=== PATIENT | male | born 2000 | race Caucasian/White ===

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

== ENCOUNTER 2023-04-25 22:48 | Emergency (ER) | payer BC ==
[2023-04-25] MEDS ORDERED: KETOROLAC 15 MG/ML 1 ML VIAL IM STA (22:58)
[2023-04-25] MEDS ORDERED: LIDOCAINE 4% PATCH TOPICAL ONE (22:58)
--- NOTE | 2023-04-25 22:58 | ED ---
Back Pain HPI - General Stated Complaint: Herniated Disc, Back Pain Time Seen by Provider: 04/25/23 22:57 Source: patient Mode of arrival: ambulatory Limitations: no limitations - History of Present Illness Initial Comments: 23-year-old male presenting with chief complaint of lower back pain. States he felt a pop in the back earlier today with radiation down the left leg while lifting a heavy object. Pain is positional. No loss of bowel or bladder control or saddle paresthesia. N9o urinary symptoms or fever. no weakness. He is able to ambulate - Related Data Home Medications Medication Instructions Recorded Confirmed Albuterol Inhaler [Ventolin Hfa 2 puff INHALATION RT-QID PRN 06/30/14 06/09/17 Inhaler] Previous Rx's Medication Instructions Recorded Azithromycin [Zithromax Z-pack (6 250 mg PO DIRECTED #6 tab 06/09/17 tabs)] Cyclobenzaprine [Flexeril] 10 mg PO TID #20 tab 06/09/17 Ibuprofen [Motrin] 600 mg PO Q8HR PRN #20 tab 06/09/17 Cyclobenzaprine [Flexeril] 10 mg PO TID PRN #15 tab 04/26/23 Allergies Allergy/AdvReac Type Severity Reaction Status Date / Time diphenhydramine Allergy Rash/Hives Verified 06/09/17 17:15 [From Benadryl] egg Allergy Unknown Verified 06/09/17 17:15 Penicillins Allergy Rash/Hives Verified 06/09/17 17:15 red dye Allergy Rash/Hives Verified 06/09/17 17:15 shellfish derived [Shellfish] Allergy Anaphylaxis Verified 06/09/17 17:15 tree nut Allergy Anaphylaxis Verified 06/09/17 17:15 walnuts Allergy Vomiting Uncoded 06/09/17 17:01 Review of Systems ROS Statement: Those systems with pertinent positive or pertinent negative responses have been documented in the HPI. ROS Other: All systems not noted in ROS Statement are negative. Past Medical History Past Medical History: Asthma, GERD/Reflux, Pneumonia, Sleep Apnea/CPAP/BIPAP Additional Past Medical History / Comment(s): has previous history of being pre diabetic per mom. diet controlled.; Immunizations are up to date History of Any Multi-Drug Resistant Organisms: None Reported Past Surgical History: Adenoidectomy, Ear Surgery, Tonsillectomy Additional Past Surgical History / Comment(s): sinus surgery: with first ear tubes Past Anesthesia/Blood Transfusion Reactions: No Reported Reaction Past Psychological History: ADD/ADHD Past Alcohol Use History: None Reported Past Drug Use History: None Reported - Past Family History Mother Family Medical History: Diabetes Mellitus, Liver Disease Additional Family Medical History / Comment(s): Dad is not involved in his life; however, he is an alcoholic Father Additional Family Medical History / Comment(s): Alcoholism General Exam - General Exam Comments Initial Comments: Visual Physical Exam Vital signs reviewed General: Well-appearing, nontoxic, no acute distress. Head: Normocephalic, atraumatic Eyes: PERRLA, EOMI ENT: Airway patent Chest: Nonlabored breathing Skin: No visual rash, normal skin tone Neuro: Alert and oriented 3 Musculoskeletal: No gross abnormalities Limitations: no limitations General appearance: alert, in no apparent distress Head exam: Present: atraumatic, normocephalic Eye exam: Present: normal appearance, EOMI Neck exam: Present: normal inspection Respiratory exam: Absent: respiratory distress Cardiovascular Exam: Present: regular rate Extremities exam: Present: normal inspection Back exam: Present: normal inspection Neurological exam: Present: alert, oriented X3 Psychiatric exam: Present: normal affect, normal mood Skin exam: Present: warm, dry Course Vital Signs 04/25/23 22:55 Temperature 99.2 F Pulse Rate 84 Respiratory 18 Rate Blood Pressure 119/75 O2 Sat by Pulse 99 Oximetry Medical Decision Making - Medical Decision Making Was pt. sent in by a medical professional or institution (, PA, MEDICINE AND HEALTH SERVICE MANAGER, urgent care, hospital, or group home...) When possible be specific @ -No Did you speak to anyone other than the patient for history (EMS, parent, family, police, friend...)? What history was obtained from this source @ -No Did you review nursing and triage notes (agree or disagree)? Why? @ -I reviewed and agree with nursing and triage notes Were old charts reviewed (outside hosp., previous admission, EMS record, old EKG, old radiological studies, urgent care reports/EKG's, group home records)? Report findings @ -No old charts were reviewed Differential Diagnosis (chest pain, altered mental status, abdominal pain women, abdominal pain men, vaginal bleeding, weakness, fever, dyspnea, syncope, headache, dizziness, GI bleed, back pain, seizure, CVA, palpatations, mental health, musculoskeletal)? @ - MDM Differential Back Pain: Strain, zoster, cauda equina syndrome, epidural abscess, vertebral osteomyelitis, discitis, fracture, subluxation, disc herniation, DJD, spinal stenosis, dissection, AAA, pancreatitis, peptic ulcer disease, pyelonephritis, kidney stone this is not meant to be an all-inclusive list. EKG interpreted by me (3pts min.). @ -As above X-rays interpreted by me (1pt min.). @ -Lumbar Spine x-ray shows no fracture CT interpreted by me (1pt min.). @ -None done U/S interpreted by me (1pt. min.). @ -None done What testing was considered but not performed or refused? (CT, X-rays, U/S, labs)? Why? @ -None What meds were considered but not given or refused? Why? @ -None Did you discuss the management of the patient with other professionals ( professionals i.e. , PA, MEDICINE AND HEALTH SERVICE MANAGER, lab, RT, psych nurse, psychiatric social worker, pattern fitter, teacher, front desk officer, binder caser)? Give summary @ -No Was smoking cessation discussed for >3mins.? @ -No Was critical care preformed (if so, how long)? @ -No Were there social determinants of health that impacted care today? How? (Homelessness, low income, unemployed, alcoholism, drug addiction, transportation, low edu. Level, literacy, decrease access to med. care, long-term, rehab)? @ -No Was there de-escalation of care discussed even if they declined (Discuss DNR or withdrawal of care, Hospice)? DNR status @ -No What co-morbidities impacted this encounter? (DM, HTN, Smoking, COPD, CAD, Cancer, CVA, ARF, Chemo, Hep., AIDS, mental health diagnosis, sleep apnea, morbid obesity)? @ -None Was patient admitted / discharged? Hospital course, mention meds given and route, prescriptions, significant lab abnormalities, going to OR and other pertinent info. @ -23-year-old male presenting with chief complaint of lower back pain. States that he felt a pop in the lower back earlier today. Has radiation of pain down the left leg. No red flag symptoms. Negative x-ray. She was treated with Toradol and lidocaine patch. He will be sent cyclobenzaprine for home. Follow- up with PCP. Report back to ER with any new or worsening symptoms. Discussed r eturn parameters and answered all questions. Patient conveyed verbal understanding and agreed to the plan. I discussed this case in detail with my attending Dr. Layton Undiagnosed new problem with uncertain prognosis? @ -No Drug Therapy requiring intensive monitoring for toxicity (Heparin, Nitro, Insulin, Cardizem)? @ -No Were any procedures done? @ -No Diagnosis/symptom? @ -Lumbar radiculopathy Acute, or Chronic, or Acute on Chronic? @ -Acute Uncomplicated (without systemic symptoms) or Complicated (systemic symptoms)? @ uncomplicated Side effects of treatment? @ -No Exacerbation, Progression, or Severe Exacerbation? @ -No Poses a threat to life or bodily function? How? (Chest pain, [place], [place], pneumonia, PE, COPD, DKA, ARF, appy, cholecystitis, CVA, Diverticulitis, Homicidal, Suicidal, threat to staff... and all critical care pts) @ -No Disposition Clinical Impression: Lumbar radiculopathy Disposition: HOME SELF-CARE Condition: Good Instructions (If sedation given, give patient instructions): Acute Low Back Pain (ED) Additional Instructions: Follow-up with PCP. Report back to ER if any new or worsening symptoms. Take Motrin and Tylenol as needed for pain control. Prescriptions: Cyclobenzaprine [Flexeril] 10 mg PO TID PRN #15 tab PRN Reason: spasms Is patient prescribed a controlled substance at d/c from ED?: No Referrals: Ramírez Collado Jr, DO [Primary Care Provider] - 1-2 days Time of Disposition: 00:49
[2023-04-25 23:17] VITALS: BP 119/75; PULSE 84; RESP 18; TEMP 99.2
--- NOTE | 2023-04-26 00:12 | XR ---
EXAM: XR Lumbosacral Spine, 2 or 3 Views CLINICAL HISTORY: ITS.REASON XR Reason: low back pain TECHNIQUE: Frontal and lateral views of the lumbar spine and sacrum. COMPARISON: No relevant prior studies available. FINDINGS: Vertebrae: Unremarkable. No acute fracture. Normal alignment. Disc spaces are preserved. IMPRESSION: Normal lumbar spine x-rays.
== END 2023-04-26 01:13 | disposition home or self-care (01) ==
LOC: EC 22:48
DX: M54.16 Radiculopathy, lumbar region (principal); J45.909 Unspecified asthma, uncomplicated; Z79.899 Other long term (current) drug therapy; Z88.0 Allergy status to penicillin; Z88.8 Allergy status to other drugs, medicaments and biological substances; Z91.012 Allergy to eggs; Z91.041 Radiographic dye allergy status; Z91.013 Allergy to seafood; Z91.018 Allergy to other foods; X50.0XXA Overexertion from strenuous movement or load, initial encounter
CPT/HCPCS: 99283 ×2; 96372 ×2; 72100; J1885